=== PATIENT | male | born 1960 | race Caucasian/White ===

== ENCOUNTER 2017-06-25 07:56 | Emergency (ER) | payer OTHER ==
[~2017-06-25] VITALS: Ht 185.4 cm; Wt 101.4 kg
[~2017-06-25 07:56] MED LIST: HYDROCODON-ACE1 EAC7 PO; MOTRIN600 MG PO
[2017-06-25] MEDS ORDERED: OMEGA-3 ACID ETH1 GM PO (08:40)
[2017-06-25] MEDS ORDERED: LOSARTAN POTAS100 MG PO (08:40)
[2017-06-25] MEDS ORDERED: TRAMADOL HCL50 MG PO (08:40)
[2017-06-25 10:48] LABS: APPEARANCE SL.HAZY ((CLEAR)); BILIRUBIN NEGATIVE; BLOOD SMALL; COLOR YELLOW ((YELLOW)); GLUCOSE (STRIP) NEGATIVE; KETONES NEGATIVE; LEUKOCYTES NEGATIVE; NITRITE NEGATIVE; PROTEIN (STRIP) 30; SPECIFIC GRAVITY 1.032 (1.000-1.030)
[2017-06-25 11:08] LABS: RED BLOOD CELLS 0-5 /HPF (0-5); WHITE BLOOD CELLS 0-5 /HPF (0-5)
[2017-06-25 11:09] LABS: BACTERIA RARE /HPF; EPITHELIAL CELLS RARE /HPF; MUCUS 3+ /LPF; UCUL ADDED? NO
[2017-06-25] MEDS ORDERED: MOTRIN800 MG PO (11:32)
[2017-06-25] MEDS ORDERED: LIDODERM 5% P1 PATCH TD (11:32)
[2017-06-25] MEDS ORDERED: FLEXERIL10 MG PO (11:32)
[2017-06-25 11:41] VITALS: BP 124/79
== END 2017-06-25 11:42 | disposition home or self-care (01) ==
LOC: EME 07:56
PROVIDERS: Nurse Practitioner Family
DX: R10.9 Unspecified abdominal pain (principal); R31.9 Hematuria, unspecified; I10 Essential (primary) hypertension; F17.200 Nicotine dependence, unspecified, uncomplicated
CPT/HCPCS: 74176; 81003; 99281; 99284